=== PATIENT | female | born 1970 | race Caucasian/White ===

== ENCOUNTER 2019-05-28 11:49 | Emergency (ER) | payer MEDICARE, MEDICAID ==
[~2019-05-28] VITALS: Ht 127 cm; Wt 49.9 kg
[2019-05-28] MEDS ORDERED: ZOCOR20 MG PO (12:00)
[2019-05-28] MEDS ORDERED: ARMOUR THYROID15 M1 PO (12:01)
[2019-05-28] MEDS ORDERED: ERYTHROMYCIN250 MG PO (12:01)
[2019-05-28] MEDS ORDERED: ROBAXIN 750 MG750 MG PO (13:32)
[2019-05-28 14:32] VITALS: BP 106/61
== END 2019-05-28 14:33 | disposition home or self-care (01) ==
LOC: M.ERS 11:49
DX: S81.012A Laceration without foreign body, left knee, initial encounter (principal); S00.83XA Contusion of other part of head, initial encounter; M25.552 Pain in left hip; M54.9 Dorsalgia, unspecified; Z88.0 Allergy status to penicillin; W01.0XXA Fall on same level from slipping, tripping and stumbling without subsequent striking against object, initial encounter; Y93.89 Activity, other specified; Y92.89 Other specified places as the place of occurrence of the external cause; Y99.0 Civilian activity done for income or pay

== ENCOUNTER → 2019-08-09 | Outpatient (CLI) | payer MEDICARE, MEDICAID ==
[~2019-08-09] MED LIST: ARMOUR THYROID15 M1 PO; ERYTHROMYCIN250 MG PO; ROBAXIN 750 MG750 MG PO; ZOCOR20 MG PO
--- NOTE | 2019-08-09 13:13 | 2DMMODE ---
[place] [address] 2 D/M-MODE ECHOCARDIOGRAM Name: GARCIAOLAYINKA Room: [facility]#: [id number] Admission: 08/09/19 Attend Phys: Carole OQUENDO Moreira Discharge: Date of : 68 Date of Service: 08/09/19 1313 Report #: [id number] THIS REPORT FOR: //name// APPROVED REPORT Study performed: 08/09/2019 11:38:43 EXAM: Comprehensive 2D, Doppler, and color-flow Echocardiogram with Bubble Study Patient Location: Out-Patient BSA: 1.38 HR: 67 bpm BP: 105/60 mmHg Other Information Study Quality: Good Indications Hx. of valve repair and PFO repair 2D Dimensions IVSd: 6.16 (7-11mm) LVOT Diam: 18.40 (18-24mm) LVDd: 30.77 mm PWd: 8.05 (7-11mm) Ascending Ao: 25.02 (22-36mm) LVDs: 17.24 (25-40mm) Aortic Root: 19.58 mm Volumes Left Atrial Volume (Systole) LA ESV Index: 9.70 mL/m2 Aortic Valve AoV Peak Devin.: 1.06 m/s AO Peak Gr.: 4.47 mmHg LVOT Max P.93 mmHg AO Mean Gr.: 3.09 mmHg LVOT Mean P.21 mmHg LVOT Max V: 0.86 m/s AO V2 VTI: 23.41 cm LVOT Mean V: 0.49 m/s TARYN (VTI): 1.79 cm2 LVOT V1 VTI: 15.72 cm Mitral Valve E/A Ratio: 1.05 MV Decel. Time: 323.22 ms MV E Max Devin.: 0.66 m/s MV PHT: 93.73 ms MVA (PHT): 2.35 [place]2 [place] [address] 2 D/M-MODE ECHOCARDIOGRAM Name: OLAYINKA GARCIA Room: [facility]#: [id number] Admission: 08/09/19 Attend Phys: Carole OQUENDO Moreira Discharge: Date of : 68 Date of Service: 08/09/19 1313 Report #: [id number] TDI E/Lateral E': 6.60 E/Medial E': 9.43 Medial E' Devin.: 0.07 m/s Lateral E' Devin.: 0.10 m/s Pulmonary Valve PV Peak Devin.: 1.11 m/s PV Peak Gr.: 4.95 mmHg Tricuspid Valve RAP Estimate: 5.00 mmHg TR Peak Gr.: 18.02 mmHg RVSP: 23.02 mmHg PA Pressure: 23.02 mmHg Left Ventricle The left ventricle is normal size. There is normal LV segmental wall motion. There is normal left ventricular wall thickness. Left ventricular systolic function is normal. LVEF is 55-60%. Transmitral Doppler flow pattern suggests impaired LV relaxation. Right Ventricle The right ventricle is normal size. The right ventricular systolic function is normal. Atria The left atrium size is normal. Injection of bubbles documented no interatrial shunt. The right atrium size is normal. Aortic Valve The aortic valve is normal in structure. Mild aortic regurgitation. There is no aortic valvular stenosis. Mitral Valve The mitral valve is normal in structure. There is no mitral valve regurgitation noted. No evidence of mitral valve stenosis. Tricuspid Valve The tricuspid valve is normal in structure. Mild tricuspid regurgitation. Pulmonic Valve The pulmonary valve is normal in structure. There is no pulmonic valvular regurgitation. Great Vessels The aortic root is normal in size. IVC [place] [address] 2 D/M-MODE ECHOCARDIOGRAM Name: OLAYINKA GARCIA Room: [facility]#: [id number] Admission: 08/09/19 Attend Phys: Carole OQUENDO Moreira Discharge: Date of : 68 Date of Service: 08/09/19 1313 Report #: [id number] collapses >50% with inspiration. Pericardium There is no pericardial effusion. <Conclusion> The left ventricle is normal size. There is normal left ventricular wall thickness. Left ventricular systolic function is normal. LVEF is 55-60%. Transmitral Doppler flow pattern suggests impaired LV relaxation. Injection of bubbles documented no interatrial shunt. Mild aortic regurgitation. The mitral valve is normal in structure. There is no mitral valve regurgitation noted. Mild tricuspid regurgitation. IVC is normal in size and collapses >50% with inspiration. <ELECTRONICALLY SIGNED> By: Cesar Bone MD, FACC 08/09/19 131 12 12 Cesar Bone MD, FACC /INF
== END ==
LOC: M.RAD 10:15 → M.ULTRA 10:30 → M.CRD 11:00
DX: Z12.31 Encounter for screening mammogram for malignant neoplasm of breast (principal); I63.81 Other cerebral infarction due to occlusion or stenosis of small artery; E78.2 Mixed hyperlipidemia; Z86.73 Personal history of transient ischemic attack (TIA), and cerebral infarction without residual deficits

== ENCOUNTER 2021-07-20 06:57 | Emergency (ER) | payer MEDICARE, MEDICAID ==
[~2021-07-20] VITALS: Ht 147.3 cm; Wt 47.6 kg
[2021-07-20] MEDS ORDERED: DEXAMETHASONE 44 M1 PO (07:51)
[2021-07-20] MEDS ORDERED: KEPPRA 500 MG500 M1 PO (07:51)
[2021-07-20 08:03] VITALS: BP 108/40
== END 2021-07-20 08:03 | disposition home or self-care (01) ==
LOC: M.ERS 06:57
DX: U07.1 COVID-19 (principal); R56.9 Unspecified convulsions; Z88.0 Allergy status to penicillin